=== PATIENT | female | born 1995 | race Two or more races ===

== ENCOUNTER 2020-01-04 11:41 | Outpatient (CLI) | payer OTHER | END 2020-01-04 12:01 | disposition home or self-care (01) | LOC: RAD 11:41 | PROVIDERS: ATTEND Obstetrics & Gynecology Gynecology | DX: N83.291 Other ovarian cyst, right side (principal); N94.5 Secondary dysmenorrhea; N76.2 Acute vulvitis; N60.12 Diffuse cystic mastopathy of left breast; N60.11 Diffuse cystic mastopathy of right breast; E66.3 Overweight; D25.0 Submucous leiomyoma of uterus ==

== ENCOUNTER 2021-06-21 09:26 | Outpatient (CLI) | payer OTHER | END 2021-06-21 10:21 | disposition home or self-care (01) | LOC: PRENATAL 09:26 | PROVIDERS: ATTEND Obstetrics & Gynecology Maternal & Fetal Medicine | DX: Z36.0 Encounter for antenatal screening for chromosomal anomalies (principal); Z3A.17 17 weeks gestation of pregnancy ==

== ENCOUNTER 2021-07-05 17:12 | Outpatient (CLI) | payer OTHER | END 2021-07-05 18:04 | disposition home or self-care (01) | LOC: NST 17:12 | PROVIDERS: ATTEND Obstetrics & Gynecology | DX: Z34.82 Encounter for supervision of other normal pregnancy, second trimester (principal) ==

== ENCOUNTER 2021-07-10 15:33 | Outpatient (CLI) | payer OTHER | END 2021-07-10 16:24 | disposition home or self-care (01) | LOC: PRENATAL 15:33 | PROVIDERS: ATTEND Obstetrics & Gynecology Maternal & Fetal Medicine | DX: O35.0XX0 Maternal care for (suspected) central nervous system malformation in fetus, not applicable or unspecified (principal); O35.3XX0 Maternal care for (suspected) damage to fetus from viral disease in mother, not applicable or unspecified; O99.891 Other specified diseases and conditions complicating pregnancy; Z3A.20 20 weeks gestation of pregnancy ==

== ENCOUNTER 2021-11-16 08:00 | Outpatient (CLI) | payer OTHER ==
[2021-11-16] MEDS ORDERED: PRENATAL TABLE1 EAC3 PO (08:09)
== END 2021-11-16 14:07 | disposition left against medical advice (07) ==
LOC: OBS/DEL 08:00
PROVIDERS: ATTEND Obstetrics & Gynecology
DX: O47.1 False labor at or after 37 completed weeks of gestation (principal); Z3A.39 39 weeks gestation of pregnancy; R10.2 Pelvic and perineal pain

== ENCOUNTER 2021-11-19 02:39 | Inpatient (IN) | payer OTHER | END 2021-11-21 11:47 | disposition home or self-care (01) | DRG 807 | LOC: LDR 02:39 → OB/GYN 13:47 | PROVIDERS: ADMIT Obstetrics & Gynecology | PROC: 10E0XZZ Delivery of Products of Conception, External Approach (ICD-10-PCS; principal; 2021-11-19) | PROC: 0HQ9XZZ Repair Perineum Skin, External Approach (ICD-10-PCS; 2021-11-19) | PROC: 0UQMXZZ Repair Vulva, External Approach (ICD-10-PCS; 2021-11-19) | PROC: 4A1HXCZ Monitoring of Products of Conception, Cardiac Rate, External Approach (ICD-10-PCS; 2021-11-19) | DX: O70.0 First degree perineal laceration during delivery (principal); O71.82 Other specified trauma to perineum and vulva; Z3A.39 39 weeks gestation of pregnancy; Z20.822 Contact with and (suspected) exposure to COVID-19; Z37.0 Single live birth ==